=== PATIENT | male | born 1980 | race Two or more races ===

== ENCOUNTER → 2024-03-08 | Outpatient (CLI) | payer MEDICARE, MEDICAID, SELFPAY ==
--- NOTE | 2024-03-08 13:15 | XR_ITS ---
Examination: MRI lumbar spine with intravenous contrast Technique: Multiple axial sagittal MRI images lumbar spine post intravenous administration 20 cc gadolinium Exam date and time: February 29, 2024 1350 hrs. Indications: Low back pain 15 years increasing in severity, pain radiating to legs numbness in the legs surgical repair 2022 Findings: Satisfactory alignment lumbar vertebral bodies Transpedicular lumbar fusion L4-S1 with anatomic alignment Magnetic susceptibility artifact secondary to the transpedicular screws No lumbar fracture No focal lumbar disc protrusion No abnormal osseous enhancement Normal position conus medullaris and cauda equina Impression: Lumbar fusion L4-S1 with anatomic alignment No focal lumbar disc protrusion
== END | disposition home or self-care (01) ==
LOC: SMRI 12:54
PROVIDERS: PCP Registered Nurse; Referring Provider Physical Medicine & Rehabilitation Pain Medicine; Visit Provider Physical Medicine & Rehabilitation Pain Medicine
DX: M54.16 Radiculopathy, lumbar region (principal)
CPT/HCPCS: 72149; A9579

== ENCOUNTER → 2024-08-02 | Outpatient (CLI) | payer MEDICARE, MEDICAID, SELFPAY ==
--- NOTE | 2024-08-02 11:00 | XR_ITS ---
Examination: MRI cervical spine without intravenous contrast Date and time of exam: August 02, 2024 2011 hours INDICATIONS: Neck pain beginning 2014 radiating down both arms worse the last 6 months Technique: Multiple axial and sagittal sections of the cervical spine to been obtained. T2 weighted sagittal sections, TR 3, 270, TE 117 T1-weighted sagittal sections, TR 500, TE 11 T1-weighted axial sections, TR 607, TE 12, axial sections TR 18, TE 27 and T2 weighted transverse sections, TR 3920, TE 122. Findings: Adequate alignment cervical vertebral bodies No cervical fracture Intact odontoid Advanced disc narrowing C5-C6 Diffuse cervical disc desiccation Normal velocities enlargement cervical cord C2-C3 no disc protrusion C3-C4 no disc protrusion C4-C5 no disc protrusion C5-C6 3 mm central osteophyte disc complex with moderate bilateral neural foraminal stenosis C6-C7 moderate bilateral neural foraminal stenosis with 2 mm central subarticular osteophyte disc complex C7-T1 no disc protrusion IMPRESSION: Advanced degenerative disc disease C5-C6 C5-C6 3 mm central osteophyte disc complex, moderate bilateral neural foraminal stenosis C6-C7 2 mm central subarticular osteophyte disc complex, moderate bilateral neural foraminal stenosis
== END | disposition home or self-care (01) ==
LOC: SMRI 09:31
PROVIDERS: Referring Provider Physical Medicine & Rehabilitation Pain Medicine; Visit Provider Physical Medicine & Rehabilitation Pain Medicine
DX: M50.322 Other cervical disc degeneration at C5-C6 level (principal); M48.02 Spinal stenosis, cervical region; M25.78 Osteophyte, vertebrae
CPT/HCPCS: 72141

== ENCOUNTER → 2025-01-08 | Outpatient (CLI) | payer MEDICARE, MEDICAID, SELFPAY ==
--- NOTE | 2025-01-08 16:15 | XR_ITS ---
Examination: MRI lumbar spine with intravenous contrast Date and time of exam: January 08, 2025, 1707 hours, comparison MRI lumbar spine with contrast March 08, 2024 INDICATIONS: Lower back pain radiating down both legs paresthesias in the legs 1 year, spinal fusion December 2022 Technique: Multiple MRI axial and sagittal sections lumbar spine, post intravenous administration 20 cc gadolinium Sagittal T2-weighted images, TR 3500, TE 118 T1 weighted transverse sections, TR 688 T8.5, T2-weighted sagittal sections T1 weighted sagittal sections TR 621, TE 30 T2 axial sections, TR 4, 190, TE 84. Findings: Satisfactory alignment lumbar vertebral bodies Magnetic susceptibility artifact secondary to fusion L4-S1 No abnormal enhancement involving the upper nondistorted lumbar vertebral bodies Normal position conus medullaris No focal disc protrusions depicted No neuroforaminal stenosis on the oblique sagittal views IMPRESSION: Anatomic alignment lumbar fusion L4-S1 No abnormal osseous enhancement Normal position conus medullaris cauda equina No acquired soft tissue spinal stenosis
== END | disposition home or self-care (01) ==
LOC: SMRI 16:09
PROVIDERS: PCP Registered Nurse; Referring Provider Physical Medicine & Rehabilitation Pain Medicine; Visit Provider Physical Medicine & Rehabilitation Pain Medicine
DX: M43.27 Fusion of spine, lumbosacral region (principal)
CPT/HCPCS: 72149; A9577